=== PATIENT | female | born 1945 | race Two or more races ===

== ENCOUNTER 2019-12-13 11:48 | Inpatient (IN) | payer OTHER ==
[~2019-12-13] VITALS: Ht 152.4 cm; Wt 86.2 kg
[~2019-12-13 11:48] MED LIST: METFORMIN HCL500 MG PO
[2019-12-13] MEDS ORDERED: VASOTEC2.5 MG (12:10)
[2019-12-13] MEDS ORDERED: LANTUS SOL100 UNIT/1 (12:10)
[2019-12-15] MEDS ORDERED: ULTRAM50 MG PO (11:16)
[2019-12-15] MEDS ORDERED: ULTRACET PO (11:17)
== END 2019-12-15 16:15 | disposition home or self-care (01) | DRG 392 ==
LOC: ER 11:48 → MEDI 13:26 → SEC-K 13:26 → MEDI 18:06
PROVIDERS: ADMIT Internal Medicine; ATTEND Internal Medicine
PROC: BW21Y0Z Computerized Tomography (CT Scan) of Abdomen and Pelvis using Other Contrast, Unenhanced and Enhanced (ICD-10-PCS; principal; 2019-12-14)
DX: K29.00 Acute gastritis without bleeding (principal); K92.1 Melena; K57.30 Diverticulosis of large intestine without perforation or abscess without bleeding; I10 Essential (primary) hypertension; D50.8 Other iron deficiency anemias; E66.01 Morbid (severe) obesity due to excess calories; E11.65 Type 2 diabetes mellitus with hyperglycemia; Z79.4 Long term (current) use of insulin